=== PATIENT | male | born 1965 | race African-American/Black ===

== ENCOUNTER 2024-06-28 13:16 | Inpatient (IN) | payer OTHER ==
[2024-06-28 13:27] VITALS: BMI 26.9
[2024-06-28] MEDS ORDERED: hydrOXYzine PAMOATE 25 MG CAPSULE (FP) PO PRN (13:40)
[2024-06-28] MEDS ORDERED: NALOXONE (NARCAN) HCL 4 MG/0.1 ML SPRAY NS PRN (13:40)
[2024-06-28] MEDS ORDERED: BENZONATATE 200 MG CAPSULE PO PRN (13:40)
[2024-06-28] MEDS ORDERED: ACETAMINOPHEN 325 MG TABLET (FP) PO PRN ×2 (13:40→15:35)
[2024-06-28] MEDS ORDERED: BENZOCAINE/MENTHOL (CHLORASEPTIC ) LOZENGE MM PRN (13:40)
[2024-06-28] MEDS ORDERED: IBUPROFEN 600 MG TABLET (FP) PO PRN (13:40)
[2024-06-28] MEDS ORDERED: MAG HYDROX/AL HYDROX/SIMETH 30 ML UNIT-DOSE CUP PO PRN (13:40)
[2024-06-28] MEDS ORDERED: MAGNESIUM HYDROX 2400MG/30ML ORAL SUSPENSION 30 ML CUP PO PRN (13:40)
[2024-06-28] MEDS ORDERED: POLYETHYLENE GLYCOL (HEALTHYLAX) 3350 17 GM PACKET PO PRN (13:40)
[2024-06-28] MEDS ORDERED: NICOTINE POLACRILEX 2 MG LOZENGE BC PRN (13:40)
[2024-06-28] MEDS ORDERED: IBUPROFEN 400 MG TABLET (FP) PO PRN (13:40)
[2024-06-28] MEDS ORDERED: NICOTINE POLACRILEX 2 MG GUM BUC PRN (13:40)
[2024-06-28] MEDS ORDERED: guaiFENesin 600 MG TABLET.ER (FP) PO PRN (13:40)
[2024-06-28] MEDS ORDERED: LOPERAMIDE HCL 2 MG CAPSULE PO PRN (13:40)
[2024-06-28] MEDS: INSULIN ASPART SLIDING SCALE (NOVOLOG) 1 VIAL SQ SCH (17:21)
[2024-06-28] MEDS: ATORVASTATIN CA 40 MG TABLET (FP) PO SCH (22:26)
[2024-06-28] MEDS: MELATONIN 5 MG TABLETS PO SCH (22:27)
[2024-06-28] MEDS: THIAMINE 100 MG TABLET PO SCH (22:27)
[2024-06-28] MEDS: LATANOPROST 0.005% OPHTH SOLN 2.5ML BOTTLE OU SCH (22:28)
[2024-06-29] MEDS: sitaGLIPtin PHOSPHATE 50 MG TABLET PO SCH (06:22)
[2024-06-29] MEDS: ASPIRIN 81 MG CHEWABLE TABLETS PO SCH (09:17)
[2024-06-29] MEDS: LOSARTAN POTASSIUM 50 MG TABLET PO SCH (09:18)
[2024-06-29] MEDS: PRENATAL VITAMINS W/ FOLIC ACID TABLET (FP) PO SCH (09:18)
[2024-06-29 11:29] LABS: PH,URINE 6.5 (5.0-8.0); URINE APPEARANCE CLEAR; URINE BILIRUBIN NEGATIVE (NEGATIVE); URINE COLOR YELLOW; URINE GLUCOSE (UA) 1+ (NEGATIVE); URINE KETONE NEGATIVE (NEGATIVE); URINE LEUK ESTERASE NEGATIVE (NEGATIVE); URINE NITRITE NEGATIVE (NEGATIVE); URINE PROTEIN NEGATIVE (NEGATIVE); URINE UROBILINOGEN 0.2 mg/dL (0.2-1.0)
[2024-06-29 11:29] LABS: HEMATOCRIT 37.9 % (40.1-51.0); HEMOGLOBIN 12.3 g/dL (13.7-17.5); MCHC 32.5 g/dl (32.3-36.5); MEAN CELL VOLUME 90.7 fl (79.0-92.2); MEAN PLT VOLUME 11.6 fl (9.4-12.4); PLATELET COUNT 144 x10^3/uL (163-337); RDW 13.4 % (12.2-16.1)
[2024-06-29 11:32] LABS: CHLORIDE 106 mmol/L (98-107); POTASSIUM 4.6 mmol/L (3.5-5.1); SODIUM 139 mmol/L (136-145)
[2024-06-29 11:38] LABS: ALBUMIN 3.2 g/dl (3.4-5.0); BLOOD UREA NITROGEN 13.5 mg/dL (7-18); CALCIUM 8.9 mg/dL (8.5-10.1)
[2024-06-29 11:39] LABS: GLUCOSE,RANDOM 158 mg/dL (74-106)
[2024-06-29 11:41] LABS: ANION GAP 5 mmol/L (4-13); CO2 28 mmol/L (21-32)
[2024-06-29 11:42] LABS: BILIRUBIN,TOTAL 0.6 mg/dL (0.2-1); CREATININE 0.9 mg/dL (0.55-1.3); SGOT/AST 45 U/L (15-37); SGPT/ALT 36 U/L (13-61)
[2024-06-29 11:43] LABS: ALK PHOS 69 U/L (45-117)
[2024-06-29 12:00] LABS: SYPHILIS W/ RPR CONF NON-REACTIVE (NONREACTIVE)
[2024-06-29 12:30] LABS: HCV DIAGNOSTIC IN-HOUSE W/RFLX NON-REACTIVE (NONREACTIVE)
[2024-06-30] MEDS: INSULIN ASPART SLIDING SCALE (NOVOLOG) 1 VIAL SQ SCH (16:40)
[2024-07-01 06:08] VITALS: BP 149/95; PULSE 81; RESP 17; TEMP 97.8
== END 2024-07-01 12:06 | disposition left against medical advice (07) | DRG 894 ==
LOC: YASAS 13:16 → Y3NR 15:17 → Y3W 06-29 10:03
PROVIDERS: ADMIT Allergy & Immunology; ATTEND Allergy & Immunology
PROC: HZ42ZZZ Group Counseling for Substance Abuse Treatment, Cognitive-Behavioral (ICD-10-PCS; principal; 2024-06-28)
DX: F10.20 Alcohol dependence, uncomplicated (principal); Z59.00 Homelessness unspecified; F12.20 Cannabis dependence, uncomplicated; F17.210 Nicotine dependence, cigarettes, uncomplicated; I10 Essential (primary) hypertension; E78.5 Hyperlipidemia, unspecified; E11.9 Type 2 diabetes mellitus without complications; Z79.84 Long term (current) use of oral hypoglycemic drugs; H54.8 Legal blindness, as defined in USA
CPT/HCPCS: 36415; 71045-TC-FY; 80053; 80305; 80307; 81003; 82962; 85027; 86780; 86803; 87811; 93005; 93010